=== PATIENT | male | born 1990 | race Hispanic/Latino ===

== ENCOUNTER 2019-10-17 18:43 | Emergency (ER) | payer OTHER, SELFPAY ==
[2019-10-18 12:48] LABS: SARS-CoV-2 MS2 Positive; SARS-CoV-2 N Gene Negative; SARS-CoV-2 S Gene Negative; SARS-CoV-2 orf1ab Negative
== END 2019-10-17 19:35 | disposition home or self-care (01) ==
LOC: NAV ERS 18:43
DX: J06.9 Acute upper respiratory infection, unspecified (principal); K29.00 Acute gastritis without bleeding; Z20.828 Contact with and (suspected) exposure to other viral communicable diseases; I10 Essential (primary) hypertension
CPT/HCPCS: 87635; 99284; U0003

== ENCOUNTER 2021-01-17 03:04 | Emergency (ER) | payer SELFPAY ==
[2021-01-17] MEDS ORDERED: Sodium Chloride 0.9% 1,000 ML ONE ×2 (03:44→04:08)
[2021-01-17] MEDS ORDERED: Ondansetron PF 4 MG/2 ML Vial ONE (03:44)
== END 2021-01-17 04:45 | disposition home or self-care (01) ==
LOC: NAV ERS 03:04
DX: K52.9 Noninfective gastroenteritis and colitis, unspecified (principal); I10 Essential (primary) hypertension; Z79.899 Other long term (current) drug therapy
CPT/HCPCS: 96374; J2405; J7050

== ENCOUNTER 2021-02-03 19:31 | Emergency (ER) | payer SELFPAY | END 2021-02-03 19:53 | disposition home or self-care (01) | LOC: NAV ERS 19:31 | DX: R11.0 Nausea (principal); R42 Dizziness and giddiness; R53.1 Weakness; I10 Essential (primary) hypertension; Z79.899 Other long term (current) drug therapy | CPT/HCPCS: 36416; 99283 ==

== ENCOUNTER 2021-12-07 18:46 | Emergency (ER) | payer SELFPAY ==
[2021-12-07] MEDS ORDERED: Adenosine 6 MG/2 ML VIAL ONE ×2 (18:51→18:58)
[2021-12-07] MEDS ORDERED: Midazolam HCl 2 mg/2 ml Vial ONE (19:00)
[2021-12-07] MEDS ORDERED: Fentanyl 100 MCG/2 ML VIAL ONE (19:00)
[2021-12-07 19:24] LABS: ALT (SGPT) 71 U/L (8-55); AST (SGOT) 25 U/L (5-34); Albumin 4.8 g/dL (3.5-5.0); Alkaline Phosphatase 98 U/L (40-110); Anion Gap 23 mmol/L (10-20); BUN (Urea Nitrogen) 11 mg/dL (8.9-20.6); Bilirubin, Total 0.5 mg/dL (0.2-1.2); Calc. Creatinine Clearance 0 mL/min (70-130); Calcium 9.7 mg/dL (7.8-10.44); Carbon Dioxide 16 mmol/L (22-29); Chloride 105 mmol/L (98-107); Estimated GFR 82; Globulin 3.5 g/dL (2.4-3.5); Protein, Total 8.3 g/dL (6.0-8.3); Sodium 141 mmol/L (136-145)
[2021-12-07 19:26] LABS: Glucose 202 mg/dL (70-105); Potassium 2.5 mmol/L (3.5-5.1)
[2021-12-07] MEDS ORDERED: Potassium Chloride 20 MEQ/100 ML PREMIX BAG ONE (19:30)
[2021-12-07] MEDS ORDERED: Potassium Chloride 20 MEQ TAB ONE (19:30)
[2021-12-07] MEDS ORDERED: Aspirin Chewable 81 MG TAB ONE (19:30)
[2021-12-07 19:35] LABS: Hemoglobin 16.3 g/dL (14.0-18.0); Mean Corpuscular HGB CONC 31.6 g/dL (32.0-36.0); Mean Corpuscular Hemoglobin 27.9 pg (27.0-31.0); Mean Corpuscular Volume 88.2 fL (78.0-98.0); Mean Platelet Volume 8.9 fL (7.4-10.4); Platelet Count 374 thou/uL (130-400); RBC Distribution Width 12.3 % (11.5-14.5); Red Blood Cell (RBC) Count 5.84 mill/uL (4.70-6.10); White Blood Cell (WBC) Count 15.9 thou/uL (4.8-10.8)
[2021-12-07 19:47] LABS: Band 1 % (5-11); Eosinophils 6 % (0-10); Lymphocytes 17 % (21-51); MDiff Complete? YES; Monocytes 1 % (0-10); Neutrophil 38 % (42-75); Platelet Morphology Comment Appears Adequate; RBC Morphology Normal; Reactive Lymphocytes 37 % (0-10); Reflex for Review?? YES
[2021-12-07 19:52] LABS: SARS-CoV-2 NAA Rapid Test Not Detected (NotDetected)
[2021-12-07] MEDS ORDERED: Metoprolol Tartrate 25 MG TAB ONE (20:12)
[2021-12-07 20:15] LABS: Bilirubin Negative (Negative); Blood, Urine Trace (Negative); Clarity Slightly Cloudy (Clear); Glucose, Urine (Dipstick) Negative (Negative); Ketone, Urine Negative (Negative); Leukocyte Negative (Negative); Nitrite Negative (Negative); Protein, Urine (Dipstick) 30 mg/dL (Neg-Trace); Urobilinogen 0.2 mg/dL (Less than 2)
[2021-12-07 20:23] LABS: Amphetamine Not Detected (NotDetected); Barbiturates Screen Not Detected (NotDetected); Benzodiazepine Screen Not Detected (NotDetected); Cocaine Metabolite Screen Not Detected (NotDetected); Medtox Control Line Valid? VALID (VALID); Methadone Not Detected (NotDetected); Methamphetamine Not Detected (NotDetected); Opiate Screen Not Detected (NotDetected); Oxycodone Screen Not Detected (NotDetected); Phencyclidine (PCP) Not Detected (NotDetected); THC/Cannabinoid Screen Not Detected (NotDetected); Tricyclic Screen Not Detected (NotDetected)
[2021-12-07 20:24] LABS: Bacteria/HPF None Seen HPF (None Seen); RBC/HPF None Seen HPF (0-3); Squamous Epithelial 0-3 HPF (0-3); WBC/HPF None Seen HPF (0-3)
== END 2021-12-07 21:45 | disposition short-term general hospital (02) ==
LOC: NAV ERS 18:46
DX: I47.1 Supraventricular tachycardia (principal); E87.6 Hypokalemia; Z20.822 Contact with and (suspected) exposure to COVID-19; I10 Essential (primary) hypertension; Z79.899 Other long term (current) drug therapy
CPT/HCPCS: 71045; 80053; 80306; 81003; 81015; 82550; 84443; 84484; 85025; 85060; 85379; 93005; 96360; 96361; 96365; 96366; 96375; J0153; J2250; J3010; J3480; U0002

== ENCOUNTER 2021-12-16 19:02 | Emergency (ER) | payer SELFPAY ==
[2021-12-16 20:01] LABS: Anion Gap 15 mmol/L (10-20); BUN (Urea Nitrogen) 11 mg/dL (8.9-20.6); Calc. Creatinine Clearance 0 mL/min (70-130); Calcium 9.8 mg/dL (7.8-10.44); Carbon Dioxide 24 mmol/L (22-29); Chloride 104 mmol/L (98-107); Estimated GFR 110; Glucose 121 mg/dL (70-105); Potassium 4.2 mmol/L (3.5-5.1); Sodium 139 mmol/L (136-145)
== END 2021-12-16 20:30 | disposition home or self-care (01) ==
LOC: NAV ERS 19:02
DX: I47.1 Supraventricular tachycardia (principal); I10 Essential (primary) hypertension; Z79.899 Other long term (current) drug therapy
CPT/HCPCS: 80048

== ENCOUNTER 2021-12-30 18:23 | Emergency (ER) | payer SELFPAY ==
[2021-12-30 19:22] LABS: Bilirubin Negative (Negative); Blood, Urine Moderate (Negative); Clarity Clear (Clear); Glucose, Urine (Dipstick) Negative (Negative); Ketone, Urine Negative (Negative); Leukocyte Negative (Negative); Nitrite Negative (Negative); Protein, Urine (Dipstick) Negative (Neg-Trace); Specific Gravity, Urine 1.015 (1.005-1.030); Urobilinogen 0.2 mg/dL (Less than 2); pH, Urine 7.5 (5.0-9.0)
[2021-12-30 19:29] LABS: RBC/HPF 0-3 HPF (0-3)
== END 2021-12-30 20:42 | disposition home or self-care (01) ==
LOC: NAV ERS 18:23
DX: R00.2 Palpitations (principal); I10 Essential (primary) hypertension; Z79.899 Other long term (current) drug therapy
CPT/HCPCS: 81003; 81015; 84484

== ENCOUNTER 2022-01-04 14:53 | Emergency (ER) | payer SELFPAY ==
[2022-01-04] MEDS ORDERED: Ondansetron PF 4 MG/2 ML Vial ONE (15:22)
[2022-01-04] MEDS ORDERED: Sodium Chloride 0.9% 1,000 ML ONE (15:22)
[2022-01-04 15:43] LABS: Hemoglobin 16.2 g/dL (14.0-18.0); Mean Corpuscular HGB CONC 31.9 g/dL (32.0-36.0); Mean Corpuscular Hemoglobin 27.6 pg (27.0-31.0); Mean Corpuscular Volume 86.7 fL (78.0-98.0); Mean Platelet Volume 7.9 fL (7.4-10.4); Platelet Count 325 thou/uL (130-400); RBC Distribution Width 12.2 % (11.5-14.5); Red Blood Cell (RBC) Count 5.87 mill/uL (4.70-6.10); White Blood Cell (WBC) Count 9.3 thou/uL (4.8-10.8)
[2022-01-04 15:51] LABS: ALT (SGPT) 60 U/L (8-55); AST (SGOT) 21 U/L (5-34); Albumin 4.6 g/dL (3.5-5.0); Alkaline Phosphatase 86 U/L (40-110); Anion Gap 17 mmol/L (10-20); BUN (Urea Nitrogen) 10 mg/dL (8.9-20.6); Bilirubin, Total 0.6 mg/dL (0.2-1.2); Calc. Creatinine Clearance 0 mL/min (70-130); Carbon Dioxide 23 mmol/L (22-29); Chloride 105 mmol/L (98-107); Estimated GFR 112; Globulin 3.3 g/dL (2.4-3.5); Glucose 127 mg/dL (70-105); Lipase 15 U/L (8-78); Potassium 3.9 mmol/L (3.5-5.1); Protein, Total 7.9 g/dL (6.0-8.3); Sodium 141 mmol/L (136-145)
[2022-01-04 16:07] LABS: Eosinophils 5 % (0-10); Lymphocytes 31 % (21-51); MDiff Complete? YES; Monocytes 2 % (0-10); Neutrophil 58 % (42-75); Platelet Morphology Comment Appears Adequate; RBC Morphology Normal; Reactive Lymphocytes 4 % (0-10)
== END 2022-01-04 16:11 | disposition home or self-care (01) ==
LOC: NAV ERS 14:53
DX: R11.2 Nausea with vomiting, unspecified (principal); I10 Essential (primary) hypertension; Z79.899 Other long term (current) drug therapy
CPT/HCPCS: 80053; 83690; 85025; 96361; 96374; J2405; J7050

== ENCOUNTER 2022-02-25 14:52 | Emergency (ER) | payer SELFPAY ==
[2022-02-25 15:30] LABS: #Basophils 0.1 thou/uL (0.0-0.2); #Eosinphils 0.4 thou/uL (0.0-0.7); #Lymphocytes 2.2 thou/uL (1.20-3.40); #Monocytes 0.5 thou/uL (0.11-0.59); #Neutrophils 2.8 thou/uL (1.40-6.50); %Basophils 1.4 % (0.0-1.0); %Eosinophils 6.9 % (0.0-10.0); %Lymphocytes 36.3 % (21.0-51.0); %Monocytes 9.1 % (0.0-10.0); %Neutrophils 46.3 % (42.0-75.0); Hemoglobin 17.4 g/dL (14.0-18.0); Mean Corpuscular HGB CONC 32.2 g/dL (32.0-36.0); Mean Corpuscular Hemoglobin 28.4 pg (27.0-31.0); Mean Platelet Volume 8.5 fL (7.4-10.4); Platelet Count 298 thou/uL (130-400); Red Blood Cell (RBC) Count 6.12 mill/uL (4.70-6.10)
[2022-02-25 15:42] LABS: ALT (SGPT) 54 U/L (8-55); AST (SGOT) 20 U/L (5-34); Albumin 4.4 g/dL (3.5-5.0); Alkaline Phosphatase 93 U/L (40-110); Anion Gap 16 mmol/L (10-20); BUN (Urea Nitrogen) 8 mg/dL (8.9-20.6); Bilirubin, Total 0.4 mg/dL (0.2-1.2); Calc. Creatinine Clearance 0 mL/min (70-130); Calcium 9.4 mg/dL (7.8-10.44); Carbon Dioxide 25 mmol/L (22-29); Chloride 103 mmol/L (98-107); Estimated GFR 109; Globulin 3.5 g/dL (2.4-3.5); Glucose 123 mg/dL (70-105); Magnesium 2.1 mg/dL (1.6-2.6); Potassium 3.9 mmol/L (3.5-5.1); Protein, Total 7.9 g/dL (6.0-8.3); Sodium 140 mmol/L (136-145)
== END 2022-02-25 17:15 | disposition home or self-care (01) ==
LOC: NAV ERS 14:52
DX: R53.1 Weakness (principal); R00.2 Palpitations; I10 Essential (primary) hypertension
CPT/HCPCS: 71045; 80053; 83735; 84484; 85025; 85379; 93005

== ENCOUNTER 2024-02-06 09:58 | Emergency (ER) | payer OTHER ==
[2024-02-06] MEDS ORDERED: Pantoprazole DR 40 MG TAB ONE (10:29)
[2024-02-06] MEDS ORDERED: Naproxen 500 MG TAB ONE (10:29)
== END 2024-02-06 11:08 | disposition home or self-care (01) ==
LOC: NAV ERS 09:58
DX: S39.012A Strain of muscle, fascia and tendon of lower back, initial encounter (principal); R05.9 Cough, unspecified; R03.0 Elevated blood-pressure reading, without diagnosis of hypertension; K21.9 Gastro-esophageal reflux disease without esophagitis; I10 Essential (primary) hypertension; Z79.899 Other long term (current) drug therapy
CPT/HCPCS: 71046; 87428